=== PATIENT | female | born 1965 | race Caucasian/White ===

== ENCOUNTER 2017-01-03 16:11 | Emergency (ER) | payer OTHER ==
[~2017-01-03] VITALS: Wt 110.0 kg
[~2017-01-03 16:11] MED LIST: ACET-2047 PO; ALBU18HF INHALATION; ALBU2.5V3 NEB; ALBU8.5H3 INH; AUG875 PO; AZIT250T94 PO; BUDE0.5A INHALATION; D-ME118S6 PO; GUAI-47 PO; IBUP-1542 PO; PRED20TA PO; PROM6.25 PO
[2017-01-03] MEDS ORDERED: KETOROLAC 15 MG INJ IM STA (16:54)
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
[2017-01-03] MEDS ORDERED: DIAZEPAM 5 MG TAB PO ONE (17:00)
[2017-01-03] MEDS ORDERED: ACETAMINOPHEN 325 MG TAB PO ONE (17:30)
[2017-01-03] MEDS ORDERED: METHOCARBAMOL 500 MG TAB PO ONE (17:30)
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
[2017-01-03] MEDS ORDERED: NAPR-260 PO (19:16)
[2017-01-03] MEDS ORDERED: DIAZ-90 PO (19:17)
== END 2017-01-03 19:35 | disposition home or self-care (01) ==
LOC: FTE 16:11
DX: S29.9XXA Unspecified injury of thorax, initial encounter (principal); I10 Essential (primary) hypertension; S69.92XA Unspecified injury of left wrist, hand and finger(s), initial encounter; V43.62XA Car passenger injured in collision with other type car in traffic accident, initial encounter
CPT/HCPCS: 73110; 96372; J1885; Z7502; Z7610